=== PATIENT | male | born 2000 | race Caucasian/White ===

== ENCOUNTER 2023-09-30 11:52 | Emergency (ER) | payer SELFPAY ==
[2023-09-30 11:56] VITALS: BP 170/73; PULSE 88; RESP 13; TEMP 36.9; O2SAT 99
--- NOTE | 2023-09-30 12:52 | ED.GENADUL_ITS ---
Discharge Plan Disposition Patient Disposition: Home Condition: Stable Discharge Details Clinical Impression: Encounter to establish care, Has run out of medications Primary Care Provider: Unknown,Unknown ED Provider: Duane Hightower Home Meds and New Rx's Prescriptions: Continued lamotrigine [Lamictal] 200 mg tablet 200 mg PO DAILY lorazepam 0.5 mg tablet 0.5 mg PO PRN PRN fluticasone propion-salmeterol [Advair HFA] 45-21 mcg/actuation HFA aerosol inhaler 1 inh inhalation BID azelastine [Astepro Allergy] 205.5 mcg (0.15 %) spray,non-aerosol 1 spray intranasal DAILY Rx Instructions: administer into each nostril Discharge Instructions Additional Instructions: Please follow-up with a primary care physician to establish care. Care management is assisting in arranging timely follow-up. Return to the ER immediately for any worsening or new concerning symptoms. Discharge Data Discharge Date/Time-TO BE ENTERED AT DEPARTURE: 09/30/23 13:14 HPI General Mode of arrival: ambulatory . Date/Time Provider Initiated Documentation: 09/30/23 11:55 . Limitations to Documentation: no limitations . Information obtained by: patient . HPI Narrative: Patient recently moved here from out of the area that has run out of his Adderall for ADHD. He has yet to establish primary care in the area. Patient notes difficulty concentrating. Related Data Home Medications Medication Instructions Recorded Confirmed azelastine 205.5 mcg (0.15 %) 1 spray intranasal DAILY 09/30/23 09/30/23 nasal spray (Astepro Allergy) fluticasone propionate 45 1 inh inhalation BID 09/30/23 09/30/23 mcg-salmeterol 21 mcg/actuation HFA inhaler (Advair HFA) lamotrigine 200 mg tablet 200 mg PO DAILY 09/30/23 09/30/23 (Lamictal) lorazepam 0.5 mg tablet 0.5 mg PO PRN PRN 09/30/23 09/30/23 Allergies Allergy/AdvReac Type Severity Reaction Status Date / Time No Known Allergies Allergy Verified 09/30/23 12:01 General Stated Complaint: RX Refill [place]: 5 Review of Systems Narrative: As per HPI Exam Const General: cooperative and no acute distress Cardio Rate: regular rate and not tachycardic Neuro General: patient alert, patient awake, patient oriented x3 and tone normal Psych Appearance: grossly normal Mental Status: mental status grossly normal Speech and Movement: speech and movement normal Course Vital Signs Vital signs: Vital Signs Temperature 36.9 C 09/30/23 11:56 Pulse 88 09/30/23 11:56 Respiratory Rate 13 09/30/23 11:56 Blood Pressure 170/73 H 09/30/23 11:56 Pulse Oximetry 99 09/30/23 11:56 Temperature 36.9 C 09/30/23 11:56 Temperature Source Temporal Artery Scan 09/30/23 11:56 Pulse 88 09/30/23 11:56 Respiratory Rate 13 09/30/23 11:56 Respiratory Effort Normal, Non-Labored 09/30/23 12:01 Blood Pressure 170/73 H 09/30/23 11:56 Blood Pressure Position Sitting 09/30/23 11:56 Pulse Oximetry 99 09/30/23 11:56 Oxygen Delivery Method Room Air 09/30/23 11:56 Oxygen Flow Rate 0 09/30/23 11:56 Pain Level 0 09/30/23 11:56 Medical Decision Making 22-year-old male with history of ADHD, treated with Adderall 20 mg 3 times daily and Adderall XR 30 mg twice daily, here today noting he is run out of his medications and is requesting to be established with a PCP in order to refill meds. Patient recently moved here from out of the area and his [id number] provider has refused to refill prescription. I have contacted care management who met with the patient and will help arrange timely follow-up with a primary care physician in the area. Quality:SDOH Health Related Social Needs: No Data to Display PFSH All Active Problems (Updated 09/30/23 @ 12:53 by Duane Hightower MD) Has run out of medications (Acute) Encounter to establish care (Acute) Social History Smoking/Tobacco Use Status: Never Smoking risk assessment performed?: Yes Alcohol Intake: current Alcohol Intake frequency: a few times a month Alcohol type: wine Drug use: Occasionally Substance use type: marijuana Do you feel safe at home: Yes Do you feel safe in your relationship?: Yes
[2023-09-30 13:12] VITALS: BP 120/71; PULSE 80; RESP 16; TEMP 36.8; O2SAT 98
== END 2023-09-30 13:14 | disposition home or self-care (01) ==
PROVIDERS: Emergency Provider Student in an Organized Health Care Education/Training Program
DX: Z76.89 Persons encountering health services in other specified circumstances (principal); F90.9 Attention-deficit hyperactivity disorder, unspecified type; F39 Unspecified mood [affective] disorder
CPT/HCPCS: 99281; 99282